=== PATIENT | male | born 1960 | race Caucasian/White ===

== ENCOUNTER 2019-11-11 09:12 | Emergency (ER) | payer BC ==
[2019-11-11] MEDS ORDERED: Sodium Chloride 0.9% 10 ML Syringe FLUSH PRN (09:20)
[2019-11-11] MEDS ORDERED: Pantoprazole 40 MG Vial IVPUSH ONE (09:20)
[2019-11-11] MEDS ORDERED: Ondansetron 4 MG/2 ML SDV IVPUSH ONE (09:20)
[2019-11-11] MEDS ORDERED: Famotidine 20 MG/2 ML SDV IVPUSH ONE (09:20)
[2019-11-11] MEDS ORDERED: Lactated Ringers 1,000 ML IV ONE (09:20)
--- NOTE | 2019-11-11 09:20 | EDM.PDOC ---
ED HPI GENERAL MEDICAL PROBLEM - General Chief Complaint: General Stated Complaint: right flank pain Time Seen by Provider: 11/11/19 09:12 Source of Information: Reports: Patient, Family (), Old Records (No [facility] records available) History Limitations: Reports: No Limitations - History of Present Illness INITIAL COMMENTS - FREE TEXT/NARRATIVE: The patient was brought to the emergency room via private automobile by his for evaluation of 10/10 right sided colic type symptoms starting in the right CVA area with symptoms starting while he was sitting in his pickup truck at about 6:45 AM this morning. He did have some mild diaphoresis with additional moderate nausea and dry heaves with symptoms improved to 7/10 at time of arrival. No medications or other treatment taken prior to arrival. He does not have a previous history of urolithiasis. Patient denies any gross hematuria, dysuria, or other UTI symptoms. No recent history of other abdominal pain, heartburn, diarrhea, melena, gross hematochezia, or any food intolerance, including fatty foods, etc. with normal bowel movement yesterday evening. The patient denies any chest pain/pressure, heart flutter, dizziness, orthostasis, orthopnea, paresthesias, recent decreased exercise tolerance, or any other anginal-type symptoms. The patient also denies any recent fever, cough, wheezing, dyspnea, etc.. Onset: Today, Sudden Onset Date: 11/11/19 Onset Time: 06:45 Duration: Constant (Dull pain at this time), Intermittent (Sharp/colic), Improving Location: Reports: Abdomen, Back (Right CVA). Denies: Head, Face, Neck, Chest, Pelvis, Upper Extremity, Left, Upper Extremity, Right, Lower Extremity, Left, Lower Extremity, Right, Radiates to Quality: Reports: Sharp, Throbbing Severity: Severe Improves with: Reports: None Worsens with: Reports: None Context: Reports: Other. Denies: Sick Contact, Trauma Associated Symptoms: Reports: Diaphoresis, Nausea/Vomiting. Denies: Confusion, Chest Pain, Cough, Fever/Chills, Headaches, Loss of Appetite, Malaise, Rash, Shortness of Breath, Syncope, Weakness Treatments [employer]: Reports: Other (see below) (None) right flank Pain Score (Numeric/FACES): 7 - Related Data Allergies Allergy/AdvReac Type Severity Reaction Status Date / Time Penicillins Allergy Rash Verified 11/11/19 09:29 Home Meds: Home Meds . [No Known Home Meds] 11/11/19 [History] Past Medical History HEENT History: Reports: Impaired Vision, Other (See Below). Denies: Allergic Rhinitis, Cataract, Glaucoma, Hard of Hearing, Macular Degeneration, Otitis Media, Retinal Detachment Other HEENT History: OTC reading glasses. Cardiovascular History: Reports: High Cholesterol, Other (See Below). Denies: Afib, Aneurysm, Arrhythmia, Blood Clots/VTE/DVT, CAD, Heart Failure, Heart Murmur, Hypertension, [place], PVD, Syncope Other Cardiovascular History: Borderline hyperlipidemia with no current medical therapy. Respiratory History: Denies: Asthma, Bronchitis, Recurrent, COPD, Intubation, Previous, PE, Pneumonia, Recurrent, Pneumothorax, Sleep Apnea, TB Gastrointestinal History: Reports: GERD, Other (See Below). Denies: Celiac Disease, Cholelithiasis, Chronic Constipation, Chronic Diarrhea, Fecal Incontinence, Gastritis, GI Bleed, Hepatitis, Inflammatory Bowel Disease, Irritable Bowel Syndrome, Jaundice, Pancreatitis, PUD Other Gastrointestinal History: Minimal colitis possibly secondary to milk allergy in the early . Genitourinary History: Reports: BPH. Denies: Acute Renal Failure, Chronic Renal Insuffiency, Renal Calculus, STD, Urinary Incontinence, UTI, Recurrent Musculoskeletal History: Reports: Arthritis, Back Pain, Chronic, Neck Pain, Chronic, Osteoarthritis. Denies: Amputation, Fracture, Gout, SLE Neurological History: Reports: Neuropathy, Peripheral, Other (See Below). 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 Psychiatric History: Reports: None. Denies: Abuse, Victim of, ADD, ADHD, Addiction, Anxiety, Depression, Psych Hospitalization(s), PTSD, Suicide Attempt, Suicidal Ideation Endocrine/Metabolic History: Reports: None. Denies: Diabetes, Type I, Diabetes, Type II, Diabetes Mellitus, Type 3c, Hypothyroidism, IDDM Hematologic History: Reports: None. Denies: Anemia, Blood Transfusion(s), Iron Deficiency Immunologic History: Reports: None. Denies: AIDS, HIV, SLE Oncologic (Cancer) History: Reports: None. Denies: Basal Cell Carcinoma, Colon, Hodgkin's Lymphoma, Leukemia, Lymphoma, Malignant Melanoma, Non-Hodgkin's Lymphoma, Prostate, Squamous Cell Carcinoma Dermatologic History: Reports: None. Denies: Eczema, Psoriasis - Infectious Disease History Infectious Disease History: Reports: Chicken Pox (As an adult), Mumps. Denies: C-Difficile, Measles, Meningitis, Mononucleosis, MRSA, Pertussis (Whooping Cough), Rheumatic Fever, Rubella, Scarlet Fever, Shingles, TB, VRE - Past Surgical History Head Surgeries/Procedures: Reports: None HEENT Surgical History: Reports: Adenoidectomy, Oral Surgery, Tonsillectomy, Other (See Below). Denies: Cataract Surgery, Eye Surgery, Laser Surgery, LASIK, Myringotomy w Tube(s), Naso-Sinus Surgery Other HEENT Surgeries/Procedures: Tonsillectomy and adenoidectomy at age 5. Multiple teeth extractions, including wisdom teeth extraction x3. Cardiovascular Surgical History: Reports: None. Denies: Varicose Respiratory Surgical History: Reports: None. Denies: Thoracentesis GI Surgical History: Reports: None. Denies: Appendectomy, Cholecystectomy, Colonoscopy, EGD, Hernia, Abdominal, Hernia, Inguinal, Hernia Repair/Other, Polypectomy Male Surgical History: Reports: Circumcision, Other (See Below). Denies: TURP-Transurethral Resection of Prostate, Vasectomy Other Male Surgeries/Procedures: Circumcision as an . Endocrine Surgical History: Reports: None. Denies: Thyroid Biopsy Neurological Surgical History: Reports: None. Denies: C-Spine, Discectomy, Laminectomy, Lumbar Spine, Sacral Spine, Spinal Fusion, Thoracic Spine, Vertebroplasty Musculoskeletal Surgical History: Reports: Carpal Tunnel, Ganglion Cyst. Denies: Arthroscopic Procedure, Joint Replacement, ORIF, Shoulder Surgery Oncologic Surgical History: Reports: None Dermatological Surgical History: Reports: Other (See Below) Other Dermatological Surgeries/Procedures: Excision of multiple benign skin lesions. Social & Family History - Tobacco Use Smoking Status *Q: Never Smoker Tobacco Use Within Last Twelve Months: No Used Tobacco, but Quit: No Smoking Cessation Information Provided To Patient: No Second Hand Smoke Exposure: No Second Hand Smoke Education Provided: No - Caffeine Use Caffeine Use: Reports: Soda (2 sodas per day). Denies: Coffee, Energy Drinks, Tea - Alcohol Use Alcohol Use History: No Days Per Week of Alcohol Use: 0 Number of Drinks Per Day: 0 Number of Drinks Per Day Comment: No previous DWIs, problems with alcohol abuse, etc. Total Drinks Per Week: 0 Alcohol Use in Last Twelve Months: No - Recreational Drug Use Recreational Drug Use: No Drug Use in Last 12 Months: No Recreational Drug Type: Denies: Amphetamines (Speed), Cocaine, Heroin, Inhalants (Glues, Solvents, Aerosols), LSD (Acid), Marijuana/Hashish, Methamphetamine, Oxycodone - Sexual History Sexual History: Reports: Sexually Active - Living Situation & Occupation Living situation: Reports: (08/02/1987. 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 [employer] ED ROS GENERAL - Review of Systems Review Of Systems: Comprehensive ROS is negative, except as noted in HPI. ED EXAM, GENERAL - Physical Exam Exam: See Below Exam Limited By: No Limitations General Appearance: Alert, WD/WN, No Apparent Distress Eye Exam: Bilateral Eye: EOMI, Normal Inspection (No nystagmus), PERRL Ears: Normal External Exam, Normal Canal, Hearing Grossly Normal, Normal TMs Nose: Normal Inspection, Normal Mucosa, No Blood Throat/Mouth: Normal Inspection, Normal Lips, Normal Teeth (Multiple missing teeth with no acute caries), Normal Gums, Normal Oropharynx, Normal Voice, No Airway Compromise. No: Dysphagia, Perioral Cyanosis Head: Atraumatic, Normocephalic. No: Facial Swelling, Facial Tenderness, Sinus Tenderness Neck: Normal Inspection, Supple, Non-Tender, Full Range of Motion. No: Carotid Bruit, Lymphadenopathy (L), Lymphadenopathy (R), Thyromegaly Respiratory/Chest: No Respiratory Distress, Lungs Clear, Normal Breath Sounds, No Accessory Muscle Use, Chest Non-Tender. No: Pleural Rub, Retractions Cardiovascular: Normal Peripheral Pulses, Regular Rate, Rhythm, No Edema, No Gallop, No JVD, No Murmur, No Rub. No: Gallop/S3, Gallop/S4, Friction Rub Peripheral Pulses: 2+: Radial (L), Radial (R), Dorsalis Pedis (L), Dorsalis Pedis (R) GI/Abdominal: Normal Bowel Sounds, Soft, No Organomegaly, No Distention, No Abnormal Bruit, No Mass, Tender (Mild right CVA tenderness). No: Guarding, Rebound (Male) Exam: Deferred Rectal (Males) Exam: Deferred Back Exam: Full Range of Motion, CVA Tenderness (R). No: Muscle Spasm, Paraspinal Tenderness, Vertebral Tenderness Extremities: Normal Inspection, Normal Range of Motion, Non-Tender, No Pedal Edema, Normal Capillary Refill. No: Estella's Sign Neurological: Alert, Oriented, CN II-XII Intact, Normal Cognition, Normal Gait, Normal Reflexes (Negative Babinski's), No Motor/Sensory Deficits Psychiatric: Normal Affect, Normal Mood Skin Exam: Warm, Dry, Intact, Normal Color, No Rash. No: Diaphoretic, Ecchymosis, Jaundice, Petechiae, Wound/Incision Lymphatic: No Adenopathy Course - Vital Signs Last Recorded V/S: Last Vital Signs Temp 36.7 C 11/11/19 09:15 Pulse 62 11/11/19 09:15 Resp 14 11/11/19 09:15 BP 113/72 11/11/19 09:15 Pulse Ox 100 11/11/19 09:15 Vital Signs - 24 hr 11/11/19 09:15 Temperature [ 36.7 C Oral] Pulse, 62 Peripheral [ Left Pulse Oximetry] Respiratory 14 Rate Blood Pressure 113/72 [Left Upper Arm ] O2 Sat by Pulse 100 Oximetry - Orders/Labs/Meds Orders: Active Orders 24 hr Category Date Time Status Abdomen Pelvis wo Cont [CT] Stat Exams 11/11/19 09:47 Taken Obtain Past Medical Record [OM.PC] Urgent Oth 11/11/19 09:21 Active Peripheral IV Insertion Adult [OM.PC] Stat Oth 11/11/19 09:21 Ordered Resuscitation Status Stat Resus Stat 11/11/19 09:20 Ordered Labs: Laboratory Tests 11/11/19 11/11/19 11/11/19 Range/Units : 09:20 09:20 WBC 6.2 (4.0-10.2) K/uL RBC 5.14 (4.33-5.41) M/uL Hgb 15.7 (13.1-16.8) g/dL Hct 46.6 (39.0-49.0) % MCV 90.7 (84.0-98.0) fL MCH 30.5 (28.2-33.3) pg MCHC 33.7 (31.7-36.0) g/dL RDW 13.6 (11.2-14.1) % Plt Count 215 (150-350) K/uL Neut % (Auto) 76.7 (45.0-80.0) % Lymph % (Auto) 15.8 (10.0-50.0) % [place] % (Auto) 6.3 (2.0-14.0) % Eos % (Auto) 0.7 (0.0-5.0) % Baso % (Auto) 0.5 (0.0-2.0) % Neut # (Auto) 4.72 (1.40-7.00) K/uL Lymph # (Auto) 0.97 (0.50-3.50) K/uL [place] # (Auto) 0.39 (0.00-1.00) K/uL Eos # (Auto) 0.04 (0.00-0.50) K/uL Baso # (Auto) 0.03 (0.00-0.20) K/uL PT 9.8 (9.5-12.0) SEC INR 1.0 APTT 23.9 L (24.5-32.8) SEC Sodium (136-145) mmol/L Potassium (3.5-5.1) mmol/L Chloride (98-107) mmol/L Carbon Dioxide (21.0-32.0) mmol/L BUN (7-18) mg/dL Creatinine (0.51-1.17) mg/dL Est Cr Clr Drug Dosing mL/min Estimated GFR (MDRD) mL/min Glucose (74-106) mg/dL Lactic Acid (0.4-2.0) mmol/L Uric Acid (2.6-7.2) mg/dL Calcium (8.5-10.1) mg/dL Magnesium (1.8-2.4) mg/dL Total Bilirubin (0.2-1.0) mg/dL AST (15-37) U/L ALT (12-78) U/L Alkaline Phosphatase (46-116) IU/L Total Protein (6.4-8.2) g/dL Albumin (3.4-5.0) g/dL Amylase 37 (25-115) U/L Lipase (73-393) U/L 11/11/19 11/11/19 Range/Units 09:20 09:20 WBC (4.0-10.2) K/uL RBC (4.33-5.41) M/uL Hgb (13.1-16.8) g/dL Hct (39.0-49.0) % MCV (84.0-98.0) fL MCH (28.2-33.3) pg MCHC (31.7-36.0) g/dL RDW (11.2-14.1) % Plt Count (150-350) K/uL Neut % (Auto) (45.0-80.0) % Lymph % (Auto) (10.0-50.0) % [place] % (Auto) (2.0-14.0) % Eos % (Auto) (0.0-5.0) % Baso % (Auto) (0.0-2.0) % Neut # (Auto) (1.40-7.00) K/uL Lymph # (Auto) (0.50-3.50) K/uL [place] # (Auto) (0.00-1.00) K/uL Eos # (Auto) (0.00-0.50) K/uL Baso # (Auto) (0.00-0.20) K/uL PT (9.5-12.0) SEC INR APTT (24.5-32.8) SEC Sodium 139 (136-145) mmol/L Potassium 4.6 (3.5-5.1) mmol/L Chloride 103 (98-107) mmol/L Carbon Dioxide 29.4 (21.0-32.0) mmol/L BUN 25 H (7-18) mg/dL Creatinine 1.39 H (0.51-1.17) mg/dL Est Cr Clr Drug Dosing 67.35 mL/min Estimated GFR (MDRD) 52 mL/min Glucose 131 H (74-106) mg/dL Lactic Acid 1.3 (0.4-2.0) mmol/L Uric Acid 5.1 (2.6-7.2) mg/dL Calcium 9.1 (8.5-10.1) mg/dL Magnesium 2.1 (1.8-2.4) mg/dL Total Bilirubin 0.5 (0.2-1.0) mg/dL AST 17 (15-37) U/L ALT 28 (12-78) U/L Alkaline Phosphatase 81 (46-116) IU/L Total Protein 8.1 (6.4-8.2) g/dL Albumin 4.2 (3.4-5.0) g/dL Amylase (25-115) U/L Lipase 58 L (73-393) U/L Urine specimen could not be collected. Meds: Medications Discontinued Medications Generic Name Dose Route Start Last Admin Trade Name Freq PRN Reason Stop Dose Admin Famotidine 40 mg 11/11/19 09:20 11/11/19 09:41 Pepcid IVPUSH 11/11/19 09:21 40 mg ONETIME ONE Administration Lactated Ringer's 1,000 mls @ 999 mls/hr 11/11/19 09:20 11/11/19 09:38 Ringers, Lactated IV 11/11/19 10:20 999 mls/hr .BOLUS ONE Administration Iopamidol 100 ml 11/11/19 09:50 Isovue-300 (61%) IVPUSH 11/11/19 09:51 ONETIME ONE Iopamidol Confirm 11/11/19 09:52 Isovue-300 (61%) Administered 11/11/19 09:53 Dose 100 ml .ROUTE .STK-MED ONE Ketorolac Tromethamine 30 mg 11/11/19 09:22 11/11/19 09:32 Toradol IVPUSH 11/11/19 09:23 30 mg ONETIME ONE Administration Ondansetron HCl 4 mg 11/11/19 09:20 11/11/19 09:35 Zofran IVPUSH 11/11/19 09:21 4 mg ONETIME ONE Administration Pantoprazole Sodium 40 mg 11/11/19 09:20 11/11/19 09:41 Protonix Iv IVPUSH 11/11/19 09:21 40 mg ONETIME ONE Administration Sodium Chloride 10 ml 11/11/19 09:20 11/11/19 09:35 Saline Flush FLUSH 10 ml ASDIRECTED PRN Administration Keep Vein Open Tamsulosin HCl 0.4 mg 11/11/19 09:22 11/11/19 09:41 Flomax PO 11/11/19 09:23 0.4 mg ONETIME ONE Administration - Radiology Interpretation Free Text/Narrative:: Telephone consultation at 10:46 AM with the radiology department at [facility]. Preliminary verbal report of CT scan of the abdomen and pelvis without contrast using stone protocol was positive for a 3 mm right distal ureteral stone with no significant hydronephrosis. Incidental finding of a small probable left benign renal cyst, although the radiologist did recommend follow-up ultrasound for further evaluation of this lesion. CT Results Date: 11/11/19 CT Results Time: 10:46 Departure - Departure Time of Disposition: 12:00 Disposition: Home, Self-Care 01 Clinical Impression: Colic in adult, Peptic reflux disease, Renal cyst Osteoarthritis Qualifiers: Osteoarthritis location: multiple joints Osteoarthritis type: primary Qualified Code(s): M89.49 - Other hypertrophic osteoarthropathy, multiple sites Urolithiasis Qualifiers: Urinary calculus location: lower urinary tract Qualified Code(s): N21.9 - Calculus of lower urinary tract, unspecified - Discharge Information *PRESCRIPTION DRUG MONITORING PROGRAM REVIEWED*: Not Applicable *COPY OF PRESCRIPTION DRUG MONITORING REPORT IN PATIENT JACOB: Not Applicable Instructions: Renal Colic, [id number], Kidney Stones, [id number] Referrals: Julita Carlin PA-C [Primary Care Provider] - Forms: ED Department Discharge, ED Return to Work/School Form Additional Instructions: 1. Followup with your regular provider in days as directed for reevaluation and recommended repeat CBC and comprehensive metabolic panel. Bring these discharge instructions with you to that visit. 2. Renal ultrasound should be scheduled at time of the above follow-up visit as follow-up for your left renal cyst. This may also be scheduled earlier through this facility, if desired. 3. Tylenol 650 mg by mouth every 4 hours and/or OTC ibuprofen 2-3 tabs by mouth every 6 hours with food as directed./needed. You may stagger these medications for 48-72 hours only, which essentially means that you are receiving a pain medication about every 2 hours. Next dose of ibuprofen in 6 hours as needed secondary to medications given in the emergency room 4. Strain all urine and bring stone to your regular provider or this facility as directed for further stone analysis. 5. [place] diet including encouragement of oral fluids such as sports drinks, etc. for 24-48 hours as directed. Advance to regular diet as tolerated thereafter. 6. Work excuse- See Form 7. Immediately after this visit verify that your cellular telephone's voicemail has been activated and is empty. Also verify that your home telephone's answering machine is operating properly and has space to receive messages. Note that it is sometimes necessary for us to be able to contact you at a later date to discuss your medical care. 8. Please remember that we are ALWAYS here for you and want to answer any questions you may have. Feel free to call the hospital any time and we call you back YES[place]. 9. Consider scheduling updated yearly health exam, updated yearly blood work, and additional initial screening colonoscopy with additional EGD PRN at time of follow-up with previous limited preventative healthcare. Sepsis Event Note (ED) - Focused Exam Vital Signs: Vital Signs Temp Pulse Resp BP Pulse Ox 11/11/19 09:15 36.7 C 62 14 113/72 100 - Problem List & Annotations (1) Urolithiasis SNOMED Code(s): 94146344, 436140739 Code(s): N20.9 - URINARY CALCULUS, UNSPECIFIED Status: Acute Priority: High Onset Date: 11/11/19 Annotation/Comment:: Right-sided distal ureteral stone noted by CT scan as above. Overall good results with treatment in the emergency room. Aggressive oral fluids, etc. encouraged. Close follow-up by regular provider as per discharge instructions. Work excuse provided. No evidence of nephrolithiasis, etc.. Patient was unable to provide a urine specimen despite 1 L of lactated Ringer's IV bolus as above. Qualifiers: Urinary calculus location: lower urinary tract Qualified Code(s): N21.9 - Calculus of lower urinary tract, unspecified; N21 - Calculus of lower urinary tract (2) Colic in adult SNOMED Code(s): 851616149520728 Code(s): R10.84 - GENERALIZED ABDOMINAL PAIN Status: Acute Priority: High Onset Date: 11/11/19 Annotation/Comment:: As above (3) Peptic reflux disease SNOMED Code(s): 371148972 Code(s): K21.9 - GASTRO-ESOPHAGEAL REFLUX DISEASE WITHOUT ESOPHAGITIS Status: Chronic Priority: Medium Annotation/Comment:: Previously nonproblematic with no medications required. High-dose IV Pepcid and IV Protonix were given as GI prophylaxis. Note that the patient has not yet had his screening colonoscopy with limited preventative healthcare. Consider scheduling EGD and/or colonoscopy, update of his HCM, etc. at follow-up as per discharge instructions (4) Osteoarthritis SNOMED Code(s): 053922268 Code(s): M19.90 - UNSPECIFIED OSTEOARTHRITIS, UNSPECIFIED SITE Status: Chronic Priority: Medium Annotation/Comment:: Stable by history with limited OTC NSAID use. Qualifiers: Osteoarthritis location: multiple joints Osteoarthritis type: primary Qualified Code(s): M89.49 - Other hypertrophic osteoarthropathy, multiple sites (5) Renal cyst SNOMED Code(s): 327022979 Code(s): N28.1 - CYST OF KIDNEY, ACQUIRED Status: Acute Priority: High Onset Date: 11/11/19 Annotation/Comment:: Incidental finding. Follow-up ultrasound recommended as per discharge instructions and as above. - Problem List Review Problem List Initiated/Reviewed/Updated: Yes - My Orders Last 24 Hours: My Active Orders 11/11/19 09:20 Resuscitation Status Stat 11/11/19 09:21 Obtain Past Medical Record [OM.PC] Urgent Peripheral IV Insertion Adult [OM.PC] Stat 11/11/19 09:47 Abdomen Pelvis wo Cont [CT] Stat - Assessment/Plan Last 24 Hours: My Active Orders 11/11/19 09:20 Resuscitation Status Stat 11/11/19 09:21 Obtain Past Medical Record [OM.PC] Urgent Peripheral IV Insertion Adult [OM.PC] Stat 11/11/19 09:47 Abdomen Pelvis wo Cont [CT] Stat Assessment:: As above Plan: As above. Extensive precautions were given to the patient and his , who are in agreement with the treatment plan. See Patient Instructions for further treatment and plan.
[2019-11-11] MEDS ORDERED: Tamsulosin 0.4 MG Cap.ER PO ONE (09:22)
[2019-11-11] MEDS ORDERED: Ketorolac 30 MG/ML SDV IVPUSH ONE (09:22)
[2019-11-11 09:45] LABS: PTT,PARTIAL THROMBOPLSTIN TIME 23.9 SEC (24.5-32.8)
[2019-11-11] MEDS ORDERED: Iopamidol 612 MG/ML 100 ML Bottle IVPUSH ONE (09:50)
[2019-11-11] MEDS ORDERED: Iopamidol 612 MG/ML 100 ML Bottle ONE (09:52)
== END 2019-11-11 12:00 | disposition home or self-care (01) ==
LOC: LL.ED 09:12
DX: K21.9 Gastro-esophageal reflux disease without esophagitis (principal); N21.9 Calculus of lower urinary tract, unspecified; N28.1 Cyst of kidney, acquired; M79.89 Other specified soft tissue disorders; Z88.0 Allergy status to penicillin
CPT/HCPCS: 36415; 74176; 80053; 82150; 83605; 83690; 83735; 84550; 85025; 85610; 85730; 96361; 96374; 96375; 99284-25; A9270-GY; C9113; J1885; J2405; J3490; J7120